=== PATIENT | female | born 1995 | race Hispanic/Latino ===

== ENCOUNTER 2020-08-05 20:36 | Emergency (ER) | payer SELFPAY ==
[~2020-08-05] VITALS: Ht 157.5 cm; Wt 77.1 kg
[2020-08-05] MEDS ORDERED: ACETAMINOPHEN 325 MG TAB PO STA (20:53)
[2020-08-05] MEDS ORDERED: AMOXICILLIN500 MG PO (21:25)
[2020-08-05 21:45] VITALS: BP 120/81
== END 2020-08-05 21:45 | disposition home or self-care (01) ==
LOC: FSED 20:50
DX: O26.91 Pregnancy related conditions, unspecified, first trimester (principal); O23.41 Unspecified infection of urinary tract in pregnancy, first trimester; R51.9 Headache, unspecified
CPT/HCPCS: 81003; 81025; 83518; 87400; 99283